=== PATIENT | male | born 1925 | race Hispanic/Latino ===

== ENCOUNTER 2016-07-01 13:49 | Inpatient (IN) | payer MEDICARE ==
--- NOTE | 2016-07-01 14:52 | Cat Scan Report ---
CT HEAD WITHOUT CONTRAST INDICATION: Altered mental status. COMPARISON: None similar. FINDINGS: Noncontrast head CT demonstrates approximately 6 x 1.8 cm left paramidline hypodensity along the superior frontal gyrus, axial image 48, series 2, amongst others, suspicious for acute/recent infarction. No acute hemorrhage, midline shift or significant mass effect however. Age-appropriate, fairly symmetric, mildly enlarged ventricles and sulci. Extensive periventricular and white matter hypodense small vessel ischemic disease and/or few lacunar infarcts. No abnormal extra axial fluid collections. Approximately 5 x 2.2 cm old right posterior temporal-occipital infarct/encephalomalacia with ex-vacuo dilatation of the right occipital horn. Normal posterior fossa with preserved basilar cisterns. Unremarkable eye globes. Bilateral frontoethmoid sinusitis. Clear remainder imaged paranasal sinuses and mastoid air cells. Left more than right external auditory canal debris may be directly visualized. Atherosclerotic internal carotid and vertebral artery calcifications. Intact calvarium. Normal scalp. CONCLUSION: 1. Left HAYDEE territory acute/subacute nonhemorrhagic infarction suspected, as detailed above. 2. Various other findings, including age-appropriate atrophy, microvascular changes and old right occipital infarct, amongst others, as described. MRI would help further characterize, if warranted. Thank you for the opportunity to participate in this patient's care.
[2016-07-01] MEDS ORDERED: ASPIRIN PR ONE (15:25)
--- NOTE | 2016-07-01 15:31 | Emergency Department Report ---
HPI - General Chief Complaint: Altered Mental Status Time Seen by Provider: 07/01/16 15:18 - HPI HPI: The patient is a 89-year-old male who presents for evaluation of strokelike symptoms. The patient arrives with family members who provide history present illness. They report that the patient was found with constant severe decrease in speech approximately 1 hour prior to arrival, at 1:30 PM earlier today. They state that they found the patient lying in bed staring at the roof, with decreased alertness. They state that the patient was last witnessed normal at 9: 51 PM last night, approximately 15 hours prior to arrival. They submit that the patient has normal speech and ability to communicate at baseline. ED Past Medical Hx - Past Medical History Hx Hypertension: Yes Hx CVA: Yes Hx Renal Disease: Yes Hx Arthritis: Yes Hx Seizures: No Hx Dementia: No Additional medical history: atrial fibrillation, bladder mass - Surgical History Additional Surgical History: unknown surgical history. - Social History Smoking Status: Current Every Day Smoker - Medications Home Medications: Home Medications Medication Instructions Recorded Confirmed Last Taken Type No Known Home Medications [No 07/01/16 07/01/16 Unknown History Reported Home Medications] ED Review of Systems ROS: Stated complaint: AMS Other details as noted in HPI Comment: Unobtainable due to pts medical conditions (non-communicative) Physical Exam - Physical Exam Vital Signs: Vital Signs 07/01/16 15:04 Respiratory 16 Rate Blood Pressure 158/67 [Left] O2 Sat by Pulse 96 Oximetry Physical Exam: General: well-nourished, well-developed, no acute distress Head: Normocephalic, atraumatic Eyes: normal sclera, EOMI, PERRL ENT: Mucous membranes are pink and moist Neck: trachea midline, neck supple, No neck stiffness, no cervical adenopathy Respiratory: Breath sounds equal bilaterally, no wheezing, rales, or rhonchi Cardio: S1 and S2 present, no murmurs, rubs, gallops, capillary refill is brisk Abdomen: Normoactive bowel sounds, soft abdomen, no rigidity, no guarding or rebound tenderness Musc: No pitting edema Skin: No rash Neuro: Patient alert, left-sided gaze deviation no facial drooping, severe expressive aphasia, unable to follow commands, no obvious gross motor deficit in the extremities, reflexes 2+ symmetric on DTR testing, Babinski downgoing Psych: Normal affect ED Course Vital Signs 07/01/16 15:04 Respiratory 16 Rate Blood Pressure 158/67 [Left] O2 Sat by Pulse 96 Oximetry ED Medical Decision Making - Lab Data Result diagrams: 07/01/16 14:53 07/01/16 14:53 - Medical Decision Making The patient was seen and examined by myself. The patient is placed on a site monitor and continuous pulse ox. On initial evaluation, the patient was found to be in no distress. Evaluation orders were placed. As the patient was last known normal 15 hours ago, he is not a candidate for TPA. CT scan the head reveals acute ischemic stroke in distribution of left HAYDEE. The patient is administered aspirin for treatment of stroke. Lab results revealed mild hypokalemia, potassium 5.6, and otherwise lab results are grossly unremarkable. The on-call hospitalist service was contacted. They agreed to admit the patient for further treatment and close monitoring. The ED admit order was placed. The patient was admitted in guarded condition. Critical care attestation.: If time is entered above; I have spent that time in minutes in the direct care of this critically ill patient, excluding procedure time. ED Disposition Clinical Impression: CVA (cerebral vascular accident), Altered mental status, Acute hyperkalemia Disposition: DISCHARGED TO HOME OR SELFCARE Is pt being admited?: Yes Does the pt Need Aspirin: Yes Condition: Serious Referrals: PRIMARY CARE, [Primary Care Provider] - 3-5 Days Time of Disposition: 15:29
[2016-07-01] MEDS ORDERED: NACL ONE ×2 (15:37→15:43)
--- NOTE | 2016-07-01 15:39 | Admit Criteria Form ---
Admission Criteria Documentation: STROKE: ISCHEMIC Clinical Indications for Admission to Inpatient Care (Place 'X' for any and all applicable criteria): Admission is indicated for ANY ONE of the following(1)(2)(3)(4): [X ]I. Acute stroke Extended stay beyond goal length of stay may be needed for(1)(2) [ ]a) Major deficit or clinical deterioration [ ]b) Hospital-acquired infection (eg, urinary tract infection, pneumonia) [ ]c) Embolic cause of stroke [ ]d) Venous thromboembolism(9) [ ]e) Seizures [ ]f) Bleeding (eg, cerebral) [ ]g) Increased intracranial pressure [ ]h) Comorbidities [ ]i) Surgical intervention The original [facility] content created by [employer] has been revised. The portions of the content which have been revised are identified through the use of italic text or in bold, and [facility] has neither reviewed nor approved the modified material. All other unmodified content is copyright [facility]. Please see references footnoted in the original [facility] edition 2016 Admission Criteria Met: Yes
[2016-07-01 15:41] LABS: Alanine Aminotransferase 13 units/L (7-56); Albumin 3.9 g/dL (3.9-5); Albumin/Globulin Ratio 1.3 %; Alkaline Phosphatase 106 units/L (35-129); Anion Gap 20 mmol/L; Bilirubin,Total 0.6 mg/dL (0.1-1.2); Blood Urea Nitrogen 18 mg/dL (9-20); Carbon Dioxide 24 mmol/L (22-30); Chloride 104.6 mmol/L (98-107); Glucose 99 mg/dL (75-100); Magnesium 2.1 mg/dL (1.7-2.3); Sodium 143 mmol/L (137-145)
[2016-07-01 15:47] LABS: Calcium 9.3 mg/dL (8.4-10.2); Hematocrit 45.6 % (35.5-45.6); Hemoglobin 14.9 gm/dl (11.8-15.2); Mean Corpuscular HGB Conc 33 % (32-34); Mean Corpuscular Hemoglobin 31 pg (28-32); Mean Corpuscular Volume 95 fl (84-94); Potassium 5.6 mmol/L (3.6-5.0); Red Blood Count 4.82 M/mm3 (3.65-5.03); Red Cell Distribution Width 13.6 % (13.2-15.2)
[2016-07-01 15:55] LABS: Platelet Count 105 K/mm3 (140-440); White Blood Count 10.5 K/mm3 (4.5-11.0)
--- NOTE | 2016-07-01 16:02 | XRay Report ---
PORTABLE CHEST INDICATION: Altered mental status, hypertension. COMPARISON: None similar. FINDINGS: Portable, frontal chest radiograph demonstrates limited inspiration with mild exaggerated cardiomediastinal silhouette and somewhat crowded lung markings. No large pleural effusions or CHF. Mild aortic knob calcifications. Multiple surgical clips in the left lower neck. EKG leads. Demineralized bones. CONCLUSION: No significant acute chest process, as described. Thank you for the opportunity to participate in this patient's care.
[2016-07-01 16:20] LABS: INR 0.99 (0.87-1.13)
[2016-07-01 16:21] LABS: Partial Thromboplastin Time 23.7 Sec. (24.2-36.6)
[2016-07-01 17:12] LABS: Basophils % (Manual) 0 % (0.0-1.8); Blastocytes % (Manual) 0 %
[2016-07-01 17:13] LABS: Elliptocytes 1+
[2016-07-01 17:14] LABS: Diff Status Complete; Platelet Estimate Consistent w Auto; Poikilocytosis Few
--- NOTE | 2016-07-01 18:01 | Cat Scan Report ---
FINAL REPORT EXAM: CT ANGIO HEAD HISTORY: stroke TECHNIQUE: Contrast-enhanced spiral CTA of brain. Multiplanar reformations. 100 mL Omnipaque IV. PRIORS: CT brain of same date. FINDINGS: Normal enhancement of the basilar and bilateral internal carotid arteries and their main intracranial branches. Mild, calcific atherosclerotic change in the bilateral cavernous and supraclinoid ICAs. No abnormal aneurysmal dilatation or significant stenosis. Lobular, geographic focus of decreased attenuation again noted in the left paramedian frontoparietal region, with paucity of vessels suggesting acute or subacute infarct. Geographic focus of encephalomalacia again noted in the right temporal occipital region compatible with more remote ischemic change or infarct. Patchy low density in the periventricular and subcortical white matter is nonspecific, but may relate to chronic small vessel ischemic change. Probable old lacunar infarct changes in the bilateral basal ganglia. Diffuse volume loss. No apparent parenchymal mass, hemorrhage, midline shift or hydrocephalus. No abnormal extra-axial fluid or air collections. No pathologic enhancement. Osseous calvarium grossly intact. IMPRESSION: 1. Findings suggesting acute or subacute ischemic change or infarct in the left paramedian frontoparietal region similar to comparison. Clinical correlation and followup suggested. 2. Chronic ischemic and atrophic changes. 3. No other acute intracranial findings.
--- NOTE | 2016-07-01 18:11 | Cat Scan Report ---
FINAL REPORT EXAM: CT ANGIO NECK HISTORY: stroke TECHNIQUE: Spiral CTA of the neck after the uneventful administration of IV contrast. Multiplanar reformations. 100 mL Omnipaque IV. PRIORS: None. FINDINGS: Postsurgical changes in left carotid region of probable carotid endarterectomy appears widely patent. Normal enhancement of the bilateral CCAs, ICAs and ECAs. Calcific, atherosclerotic change in the bilateral distal CCAs, carotid bulbs and right proximal ICA. Mild, calcific atherosclerotic change in the aortic arch and bilateral proximal subclavian arteries. No abnormal aneurysmal dilatation, apparent dissection, significant stenosis or occlusion. Vertebral arteries are patent and symmetric. Subcentimeter hypodensities in bilateral thyroid lobes. Very mild emphysematous change in the bilateral upper lungs. Small noncalcified, nodular density in left upper lobe measuring approximately 3 mm, nonspecific. Diffuse degenerative change in the cervical spine. IMPRESSION: 1. No acute findings or significant stenosis. 2. Postsurgical and mild atherosclerotic change as reported. 3. Small, nodular density in left upper lobe, indeterminate. If the patient is low risk (no significant smoking history, no history of malignancy, and a normal immune system), nodules less than 4mm in size need no follow-up. If the patient is high risk, follow-up in 12 months recommended with noncontrast CT chest. If there is no change at that time, no additional follow-up is necessary. (Based on Fleischner criteria).
[2016-07-01 18:24] LABS: Urine Drugs of Abuse Note Disclamer
[2016-07-01 19:15] LABS: Bacteria,Urine 3+ /HPF (Negative); Bilirubin,Urine NEG (Negative); Blood,Urine LG (Negative); Ketones,Urine NEG (Negative); Leukocyte Esterase,Urine MOD (Negative); Nitrite,Urine NEG (Negative)
[2016-07-01 19:16] LABS: RBC,Urine > 182.0 /HPF (0.0-6.0)
[2016-07-01] MEDS ORDERED: TYLENOL PO PRN (20:35)
[2016-07-01] MEDS ORDERED: ZOFRAN IV PRN (20:35)
[2016-07-01] MEDS ORDERED: MILK OF MAGNESIA PO PRN (20:35)
[2016-07-01] MEDS ORDERED: DILAUDID IV PRN (20:35)
[2016-07-01] MEDS ORDERED: PERCOCET 5/325 PO PRN (20:35)
[2016-07-01] MEDS ORDERED: DULCOLAX PR PRN (20:35)
--- NOTE | 2016-07-01 20:35 | History and Physical Report ---
History of Present Illness Date of examination: 07/01/16 Date of admission: 07/01/16 Chief complaint: CC Unable to talk. and possible stroke History of present illness: UPPER SKAGIT:89 year old AAM presents with Inability to talk 1 hr prior to admission.Also severe weakness in botjh lower extremities.Normallly able to walk.Symptoms happened aroun 130 pm.Patient staring at the roof with decreased alertness.Patient apparently at base line last night talking and walking.No fever or chills Past History Past Medical History: atrial fib, hypertension, renal failure, seizures, stroke (in past), other (Bladder mass) Past Surgical History: No surgical history Social history: lives with family, smoking. denies: alcohol abuse, prescription drug abuse Family history: hypertension Medications and Allergies Allergies Allergy/AdvReac Type Severity Reaction Status Date / Time No Known Allergies Allergy Unverified 01/19/13 15:46 Home Medications Medication Instructions Recorded Confirmed Last Taken Type No Known Home Medications [No 07/01/16 07/01/16 Unknown History Reported Home Medications] Review of Systems All systems: negative Constitutional: no weight loss, no weight gain, no fever, no chills Ears, nose, mouth and throat: other (Aphasia), no ear pain, no ear discharge, no tinnitis, no decreased hearing, no nasal congestion, no nasal discharge, no odynophagia Cardiovascular: no chest pain, no orthopnea, no palpitations, no shortness of breath Respiratory: no cough, no cough with sputum, no excessive sputum, no hemoptysis , no shortness of breath Gastrointestinal: no nausea, no vomiting, no diarrhea, no constipation, no change in bowel habits Genitourinary Male: no dysuria, no hematuria, no flank pain, no discharge, no urinary frequency, no urinary hesitancy, no incontinence Musculoskeletal: no neck stiffness, no neck pain Integumentary: no rash, no pruritis, no redness Neurological: weakness, aphasia, change in speech, change in mentation Psychiatric: no anxiety, no memory loss, no depression Endocrine: cold intolerance, heat intolerance, polyphagia, excessive thirst Hematologic/Lymphatic: no easy bruising, no easy bleeding Allergic/Immunologic: no urticaria, no allergic rhinitis, no wheezing Exam - Constitutional Vitals: Temp Pulse Resp BP Pulse Ox 58 L 16 157/74 99 07/01/16 18:31 07/01/16 18:31 07/01/16 18:31 07/01/16 18:31 General appearance: Present: no acute distress, well-nourished - EENT Eyes: Present: PERRL ENT: hearing intact, clear oral mucosa - Neck Neck: Present: supple, normal ROM - Respiratory Respiratory effort: normal Respiratory: bilateral: CTA - Cardiovascular Heart Sounds: Present: S1 & S2. Absent: rub, click - Extremities Extremities: pulses symmetrical, No edema Peripheral Pulses: within normal limits - Abdominal General gastrointestinal: Present: soft, non-tender, non-distended, normal bowel sounds Male genitourinary: Present: normal - Integumentary Integumentary: Present: clear, warm, dry - Musculoskeletal Musculoskeletal: gait normal, strength equal bilaterally - Psychiatric Psychiatric: appropriate mood/affect, intact judgment & insight - Neurologic Neurologic: CNII-XII intact, focal deficits (Unable to move L side ) Results - Labs CBC & Chem 7: 07/02/16 06:10 07/02/16 06:10 Labs: Laboratory Last Values WBC 10.5 K/mm3 (4.5-11.0) 07/01/16 14:53 RBC 4.82 M/mm3 (3.65-5.03) 07/01/16 14:53 Hgb 14.9 gm/dl (11.8-15.2) 07/01/16 14:53 Hct 45.6 % (35.5-45.6) 07/01/16 14:53 MCV 95 fl (84-94) H 07/01/16 14:53 MCH 31 pg (28-32) 07/01/16 14:53 MCHC 33 % (32-34) 07/01/16 14:53 RDW 13.6 % (13.2-15.2) 07/01/16 14:53 Plt Count 105 K/mm3 (140-440) L 07/01/16 14:53 Add Manual Diff Complete 07/01/16 14:53 Total Counted 100 07/01/16 14:53 Seg Neuts % (Manual) 73.0 % (40.0-70.0) H 07/01/16 14:53 Band Neutrophils % 2.0 % 07/01/16 14:53 Lymphocytes % (Manual) 21.0 % (13.4-35.0) 07/01/16 14:53 Reactive Lymphs % (Man) 0 % 07/01/16 14:53 Monocytes % (Manual) 3.0 % (0.0-7.3) 07/01/16 14:53 Eosinophils % (Manual) 1.0 % (0.0-4.3) 07/01/16 14:53 Basophils % (Manual) 0 % (0.0-1.8) 07/01/16 14:53 Metamyelocytes % 0 % 07/01/16 14:53 Myelocytes % 0 % 07/01/16 14:53 Promyelocytes % 0 % 07/01/16 14:53 Blast Cells % 0 % 07/01/16 14:53 Nucleated RBC % Not Reportable 07/01/16 14:53 Seg Neutrophils # Man 7.7 K/mm3 (1.8-7.7) 07/01/16 14:53 Band Neutrophils # 0.2 K/mm3 07/01/16 14:53 Lymphocytes # (Manual) 2.2 K/mm3 (1.2-5.4) 07/01/16 14:53 Abs React Lymphs (Man) 0.0 K/mm3 07/01/16 14:53 Monocytes # (Manual) 0.3 K/mm3 (0.0-0.8) 07/01/16 14:53 Eosinophils # (Manual) 0.1 K/mm3 (0.0-0.4) 07/01/16 14:53 Basophils # (Manual) 0.0 K/mm3 (0.0-0.1) 07/01/16 14:53 Metamyelocytes # 0.0 K/mm3 07/01/16 14:53 Myelocytes # 0.0 K/mm3 07/01/16 14:53 Promyelocytes # 0.0 K/mm3 07/01/16 14:53 Blast Cells # 0.0 K/mm3 07/01/16 14:53 WBC Morphology Not Reportable 07/01/16 14:53 Hypersegmented Neuts Not Reportable 07/01/16 14:53 Hyposegmented Neuts Not Reportable 07/01/16 14:53 Hypogranular Neuts Not Reportable 07/01/16 14:53 Smudge Cells Not Reportable 07/01/16 14:53 Toxic Granulation Not Reportable 07/01/16 14:53 Toxic Vacuolation Not Reportable 07/01/16 14:53 Dohle Bodies Not Reportable 07/01/16 14:53 Pelger-Huet Anomaly Not Reportable 07/01/16 14:53 Shelbie Rods Not Reportable 07/01/16 14:53 Platelet Estimate Consistent w auto 07/01/16 14:53 Clumped Platelets Not Reportable 07/01/16 14:53 Plt Clumps, EDTA Not Reportable 07/01/16 14:53 Large Platelets Not Reportable 07/01/16 14:53 Giant Platelets Not Reportable 07/01/16 14:53 Platelet Satelliting Not Reportable 07/01/16 14:53 Plt Morphology Comment Not Reportable 07/01/16 14:53 RBC Morphology Not Reportable 07/01/16 14:53 Dimorphic RBCs Not Reportable 07/01/16 14:53 Polychromasia Not Reportable 07/01/16 14:53 Hypochromasia Not Reportable 07/01/16 14:53 Poikilocytosis Few 07/01/16 14:53 Anisocytosis Not Reportable 07/01/16 14:53 Microcytosis Not Reportable 07/01/16 14:53 Macrocytosis Not Reportable 07/01/16 14:53 Spherocytes Not Reportable 07/01/16 14:53 Pappenheimer Bodies Not Reportable 07/01/16 14:53 Sickle Cells Not Reportable 07/01/16 14:53 Target Cells Not Reportable 07/01/16 14:53 Tear Drop Cells Not Reportable 07/01/16 14:53 Ovalocytes Not Reportable 07/01/16 14:53 Helmet Cells Not Reportable 07/01/16 14:53 [place] Bodies Not Reportable 07/01/16 14:53 Burgin Rings Not Reportable 07/01/16 14:53 Alonzo Cells Not Reportable 07/01/16 14:53 Bite Cells Not Reportable 07/01/16 14:53 Crenated Cell Not Reportable 07/01/16 14:53 Elliptocytes 1+ 07/01/16 14:53 Acanthocytes (Spur) Not Reportable 07/01/16 14:53 Rouleaux Not Reportable 07/01/16 14:53 Hemoglobin C Crystals Not Reportable 07/01/16 14:53 Schistocytes Not Reportable 07/01/16 14:53 Malaria parasites Not Reportable 07/01/16 14:53 Irvin Bodies Not Reportable 07/01/16 14:53 Hem Pathologist Commnt No 07/01/16 14:53 PT 13.0 Sec. (12.2-14.9) 07/01/16 15:32 INR 0.99 (0.87-1.13) 07/01/16 15:32 APTT 23.7 Sec. (24.2-36.6) L 07/01/16 15:32 Sodium 143 mmol/L (137-145) 07/01/16 14:53 Potassium 5.6 mmol/L (3.6-5.0) H 07/01/16 14:53 Chloride 104.6 mmol/L (98-107) 07/01/16 14:53 Carbon Dioxide 24 mmol/L (22-30) 07/01/16 14:53 Anion Gap 20 mmol/L 07/01/16 14:53 BUN 18 mg/dL (9-20) 07/01/16 14:53 Creatinine 1.0 mg/dL (0.8-1.5) 07/01/16 14:53 Estimated GFR > 60 ml/min 07/01/16 14:53 BUN/Creatinine Ratio 18.00 % 07/01/16 14:53 Glucose 99 mg/dL (75-100) 07/01/16 14:53 Lactic Acid 1.4 mmol/L (0.7-2.0) 07/01/16 15:32 Calcium 9.3 mg/dL (8.4-10.2) 07/01/16 14:53 Magnesium 2.1 mg/dL (1.7-2.3) 07/01/16 14:53 Total Bilirubin 0.6 mg/dL (0.1-1.2) 07/01/16 14:53 AST 32 units/L (5-40) 07/01/16 14:53 ALT 13 units/L (7-56) 07/01/16 14:53 Alkaline Phosphatase 106 units/L (35-129) 07/01/16 14:53 Total Protein 7.0 g/dL (6.3-8.2) 07/01/16 14:53 Albumin 3.9 g/dL (3.9-5) 07/01/16 14:53 Albumin/Globulin Ratio 1.3 % 07/01/16 14:53 Lipase 48 units/L (13-60) 07/01/16 14:53 TSH 1.870 mlU/mL (0.270-4.200) 07/01/16 14:53 Free T4 0.86 ng/dL (0.76-1.46) 07/01/16 14:53 Urine Color Red (Yellow) 07/01/16 18:11 Urine Turbidity Cloudy (Clear) 07/01/16 18:11 Urine pH 6.0 (5.0-7.0) 07/01/16 18:11 Ur Specific [place] 1.019 (1.003-1.030) 07/01/16 18:11 Urine Protein 100 mg/dl mg/dL (Negative) 07/01/16 18:11 Urine Glucose (UA) Neg mg/dL (Negative) 07/01/16 18:11 Urine Ketones Neg mg/dL (Negative) 07/01/16 18:11 Urine Blood Lg (Negative) 07/01/16 18:11 Urine Nitrite Neg (Negative) 07/01/16 18:11 Urine Bilirubin Neg (Negative) 07/01/16 18:11 Urine Urobilinogen 2.0 mg/dL (<2.0) 07/01/16 18:11 Ur Leukocyte Esterase Mod (Negative) 07/01/16 18:11 Urine WBC (Auto) 74.0 /HPF (0.0-6.0) H 07/01/16 18:11 Urine RBC (Auto) > 182.0 /HPF (0.0-6.0) 07/01/16 18:11 Urine Bacteria (Auto) 3+ /HPF (Negative) 07/01/16 18:11 Salicylates < 0.3 mg/dL (2.8-20.0) L 07/01/16 14:53 Urine Opiates Screen Presumptive negative 07/01/16 18:11 Urine Methadone Screen Presumptive negative 07/01/16 18:11 Acetaminophen < 15.0 ug/mL (10.0-30.0) 07/01/16 14:53 Ur Barbiturates Screen Presumptive negative 07/01/16 18:11 Ur Phencyclidine Scrn Presumptive negative 07/01/16 18:11 Ur Amphetamines Screen Presumptive negative 07/01/16 18:11 U Benzodiazepines Scrn Presumptive negative 07/01/16 18:11 Urine Cocaine Screen Presumptive negative 07/01/16 18:11 U Marijuana (THC) Screen Presumptive negative 07/01/16 18:11 Drugs of Abuse Note Disclamer 07/01/16 18:11 Plasma/Serum Alcohol < 0.01 gm% (0-0.07) 07/01/16 14:53 Assessment and Plan Advance Directives: Yes (None) VTE prophylaxis?: Chemical Plan of care discussed with patient/family: Yes - Patient Problems (1) Altered mental status Current Visit: Yes Status: Acute Qualifiers: Altered mental status type: somnolence Coma depth: C Coma timing: C Qualified Code(s): R40.0 - Somnolence Plan to address problem: W/u for stroke (2) CVA (cerebral vascular accident) Current Visit: Yes Status: Acute Qualifiers: CVA mechanism: thrombosis Precerebral and cerebral artery: middle cerebral artery Laterality of affected vessel: left Qualified Code(s): I63.312 - Cerebral infarction due to thrombosis of left middle cerebral artery Plan to address problem: W/u for stroke (3) Acute hyperkalemia Current Visit: Yes Status: Acute Plan to address problem: Mild and should correct with Iv fluids anf if necessary Lasix (4) DVT prophylaxis Current Visit: Yes Status: Acute Plan to address problem: On Lovenox
[2016-07-01] MEDS ORDERED: SODIUM CHLORIDE FLUSH SYRINGE 10 ML IV PRN (20:39)
[2016-07-01] MEDS ORDERED: ZOCOR PO SCH (22:00)
[2016-07-02 07:29] LABS: Basophils % (Auto) 0.3 % (0.0-1.8); Eosinophils % (Auto) 0.6 % (0.0-4.3); Hematocrit 41.6 % (35.5-45.6); Hemoglobin 13.5 gm/dl (11.8-15.2); Mean Corpuscular HGB Conc 33 % (32-34); Mean Corpuscular Hemoglobin 31 pg (28-32); Mean Corpuscular Volume 94 fl (84-94); Platelet Count 110 K/mm3 (140-440); Red Blood Count 4.42 M/mm3 (3.65-5.03); Red Cell Distribution Width 13.8 % (13.2-15.2); White Blood Count 6.4 K/mm3 (4.5-11.0)
[2016-07-02 07:48] LABS: Alanine Aminotransferase 10 units/L (7-56); Albumin 3.5 g/dL (3.9-5); Albumin/Globulin Ratio 1.1 %; Alkaline Phosphatase 105 units/L (35-129); Anion Gap 18 mmol/L; BUN/Creatinine Ratio 18.88; Bilirubin,Total 0.8 mg/dL (0.1-1.2); Blood Urea Nitrogen 17 mg/dL (9-20); Calcium 9.2 mg/dL (8.4-10.2); Carbon Dioxide 25 mmol/L (22-30); Cholesterol 132 mg/dL (50-199); Glucose 102 mg/dL (75-100); HDL Cholesterol 35 mg/dL (40-59); LDL Cholesterol,Direct 79 mg/dL (50-130); Potassium 4.2 mmol/L (3.6-5.0); Sodium 144 mmol/L (137-145); Total Protein 6.8 g/dL (6.3-8.2); Triglycerides 91 mg/dL (2-149)
--- NOTE | 2016-07-02 10:54 | Consultation ---
History of Present Illness Consult date: 07/02/16 Requesting physician: FABRICIO SONG Reason for Consult: stroke Chief complaint: AMs limits direct hx History of present illness: 89-year-old male arrived 07/01 w/ family members who provided history present illness. They report that the patient was found with constant severe decrease in speech approximately 1 hour prior to arrival at 1:30 PM. They stated that they found the patient lying in bed staring at the roof, with decreased alertness. Last well 06/30 @ 9:51 PM. They submit that the patient has normal speech and ability to communicate at baseline. Sx are constant. There are no clear aggravating, relieving or temporal factors. Severity was enough to cause inability to effectively use the right side. Past History Past Medical History: other (Ams limits direct hx) Past Surgical History: Other (Ams limits direct hx) Social history: other (Ams limits direct hx) Family history: other (Ams limits direct hx) Medications and Allergies Allergies Allergy/AdvReac Type Severity Reaction Status Date / Time No Known Allergies Allergy Unverified 01/19/13 15:46 Home Medications Medication Instructions Recorded Confirmed Last Taken Type No Known Home Medications [No 07/01/16 07/01/16 Unknown History Reported Home Medications] Active Meds: Active Medications Acetaminophen (Tylenol) 650 mg PO Q4H PRN PRN Reason: Pain MILD(1-3)/Fever >100.5/LALA Bisacodyl (Dulcolax) 10 mg LA QDAY PRN PRN Reason: Constipation unrelieved by MOM Enoxaparin Sodium (Lovenox) 40 mg SUB-Q QDAY [facility] Hydromorphone HCl (Dilaudid) 0.5 mg IV Q3H PRN PRN Reason: Pain , Severe (7-10) Dextrose/Sodium Chloride (D5/0.45ns) 1,000 mls @ 100 mls/hr IV DIRECT WAQAS Influenza Virus Vaccine Quadrival (Fluarix Quad [id number](36 Mos+)) 60 mcg IM .ONCE ONE Stop: 07/02/16 12:01 Magnesium Hydroxide (Milk Of Magnesia) 30 ml PO Q4H PRN PRN Reason: Constipation Ondansetron HCl (Zofran) 4 mg IV Q8H PRN PRN Reason: N/V unrelieved by Reglan Oxycodone/Acetaminophen (Percocet 5/325) 1 tab PO Q6H PRN PRN Reason: Pain, Moderate (4-6) Pneumococcal Polyvalent Vaccine (Pneumovax 23) 0.5 ml IM .ONCE ONE Stop: 07/02/16 12:01 Simvastatin (Zocor) 20 mg PO QHS WAQAS Last Admin: 07/02/16 07:41 Dose: Not Given Sodium Chloride (Sodium Chloride Flush Syringe 10 Ml) 10 ml IV PRN PRN PRN Reason: LINE FLUSH Review of Systems ROS unobtainable: due to mental status Physical Examination - Vital Signs Vital Signs: Vital Signs Resp BP Pulse Ox 16 158/67 96 07/01/16 15:04 07/01/16 15:04 07/01/16 15:04 - Constitutional General appearance: comfortable, chronically ill - EENT EENT: Present: ATNC, PERRL, mucous membranes dry, hearing intact, vision intact - Respiratory Respiratory: Present: chest non-tender, no respiratory distress, decreased breath sounds - Cardiovascular Cardiovascular: Present: regular rate Extremities: Present: no peripheral edema bilatateraly, no clubbing, cyanosis, no inflammation, no ischemia or petechiae - Gastrointestinal Gastrointestinal: Present: normoactive bowel sounds, soft, non-distended - Integumentary Integumentary: Present: normal - Neurologic Cranial nerve examination: PERRL, EOMI, VFF, V1/V2/V3 grossly intact, intact, intact shoulder shrug, intact cough reflex, Intact Vestibulo-ocular r, intact corneal reflex, facial droop (on R) Speech examination: motor aphasia, sensory aphasia Sensorimotor examination: pronator drift, hemiparesis (on R) Motor examination - right side: 2/5: biceps, triceps, wrist flexion, wrist extension, labor economics professor, hip flexors, knee extensors, dorsiflexion, toe extension (EHL) , plantarflexion Motor examination - left side: 5/5: biceps, triceps, wrist flexion, wrist extension, labor economics professor, hip flexors, knee extensors, dorsiflexion, toe extension (EHL) , plantarflexion Detailed sensory examination: intact, pain Reflexes: 3+: ankle (on R), bicep, knee, tricep - Musculoskeletal Musculoskeletal: Present: no fluid collection, no pain, normal range of motion - Psychiatric Psychiatric: Present: mood/affect appropriate, cooperative Results - Laboratory Findings CBC and BMP: 07/02/16 06:10 07/02/16 06:10 Abnormal Lab Findings: Abnormal Labs 07/02/16 07/02/16 06:10 06:10 Plt Count 110 L Glucose 102 H Albumin 3.5 L HDL Cholesterol 35 L Assessment and Plan 89 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 LDL 79. CTA Head/Neck post surgical L ICA suspect prior CEA. CDs neg. Stroke severity relatively high-I suspect pt will require PEG if family consents. Plan and Recommendation: 1. No indication for pharmacologic thrombolysis with IV tPA or mechanical thrombectomy due to last known normal > 6 hrs from presentation. Current NIHSS 14. 2. Telemetry bed w/ Q4 hour neuro checks 3. Brain imaging: MRI Brain w/o Adriano Stroke Protocol 4. TTE to eval for possible cardiac source of embolism 5. 30 day ambulatory Tele monitor ? pAFib 6. Autoregulate SBP to goal 120-160 as pt is outside permissive HTN window. 7. Secondary stroke prevention: ASA 325mg/300mg LA Daily & upgrade to full dose statin therapy (Crestor 20mg or 40mg OR Lipitor 40mg or 80mg Daily OR Zocor 40mg QDay) for goal LDL < 70. No firm indication at this point for therapeutic anticoagulation as pt has not had AFib captured on telemetry monitoring. 8. F/E/N: isotonic IVF prn, prn replete, bedside speech/swallow eval prior to PO intake. 9. DVT Prophylaxis 10. Stroke education, PT/OT/Speech Therapy consults, CM evaluation 11. For any changes in neurologic status, pls obtain STAT CTH w/o contrast and call neurology
[2016-07-02] MEDS: LOVENOX SUB-Q SCH (11:23)
[2016-07-02] MEDS ORDERED: FLUARIX QUAD 2016-2017(36 MOS+) IM ONE (12:00)
[2016-07-02] MEDS ORDERED: PNEUMOVAX 23 IM ONE (12:00)
--- NOTE | 2016-07-02 16:07 | Progress Note ---
Assessment and Plan Assessment and plan: Acute CVA - Neurology recommendation appreciated - Patient is on aspirin, statin - Permissive hypertension - PT/OT/ evaluation - Stroke education - We will finish the workup including TTE - Patient did have A. fib on the monitor, may need event monitor as an outpatient - No indication for pharmacologic prophylaxis History Interval history: Patient was sleeping, his ex- and son were present at the time of examination. Patient is not able to speak but able to understood. Hospitalist Physical - Physical exam Narrative exam: Not in cardiopulmonary distress. Chronically sick looking Vital signs as documented. Head exam is unremarkable. No scleral icterus . Neck is without jugular venous distension, thyromegaly, or carotid bruits. Lungs are clear to auscultation. Cardiac exam reveals regular rate and Rhythm.. Abdominal exam reveals normal bowel sounds, no masses, no organomegaly and no aortic enlargement. Extremities are nonedematous. SUPERVISOR CURING ROOM: Nonverbal per families report. - Constitutional Vitals: Temp Pulse Resp BP Pulse Ox 97.5 F L 71 20 160/75 100 07/02/16 08:01 07/02/16 10:41 07/02/16 08:01 07/02/16 08:01 07/02/16 10:42 General appearance: Present: no acute distress, well-nourished Results - Labs CBC & Chem 7: 07/02/16 06:10 07/02/16 06:10 Labs: Laboratory Last Values WBC 6.4 K/mm3 (4.5-11.0) 07/02/16 06:10 RBC 4.42 M/mm3 (3.65-5.03) 07/02/16 06:10 Hgb 13.5 gm/dl (11.8-15.2) 07/02/16 06:10 Hct 41.6 % (35.5-45.6) 07/02/16 06:10 MCV 94 fl (84-94) 07/02/16 06:10 MCH 31 pg (28-32) 07/02/16 06:10 MCHC 33 % (32-34) 07/02/16 06:10 RDW 13.8 % (13.2-15.2) 07/02/16 06:10 Plt Count 110 K/mm3 (140-440) L 07/02/16 06:10 Lymph % (Auto) 24.5 % (13.4-35.0) 07/02/16 06:10 Stone % (Auto) 5.7 % (0.0-7.3) 07/02/16 06:10 Eos % (Auto) 0.6 % (0.0-4.3) 07/02/16 06:10 Baso % (Auto) 0.3 % (0.0-1.8) 07/02/16 06:10 Lymph # 1.6 K/mm3 (1.2-5.4) 07/02/16 06:10 Stone # 0.4 K/mm3 (0.0-0.8) 07/02/16 06:10 Eos # 0.0 K/mm3 (0.0-0.4) 07/02/16 06:10 Baso # 0.0 K/mm3 (0.0-0.1) 07/02/16 06:10 Add Manual Diff Complete 07/01/16 14:53 Total Counted 100 07/01/16 14:53 Seg Neutrophils % 68.9 % (40.0-70.0) 07/02/16 06:10 Seg Neuts % (Manual) 73.0 % (40.0-70.0) H 07/01/16 14:53 Band Neutrophils % 2.0 % 07/01/16 14:53 Lymphocytes % (Manual) 21.0 % (13.4-35.0) 07/01/16 14:53 Reactive Lymphs % (Man) 0 % 07/01/16 14:53 Monocytes % (Manual) 3.0 % (0.0-7.3) 07/01/16 14:53 Eosinophils % (Manual) 1.0 % (0.0-4.3) 07/01/16 14:53 Basophils % (Manual) 0 % (0.0-1.8) 07/01/16 14:53 Metamyelocytes % 0 % 07/01/16 14:53 Myelocytes % 0 % 07/01/16 14:53 Promyelocytes % 0 % 07/01/16 14:53 Blast Cells % 0 % 07/01/16 14:53 Nucleated RBC % Not Reportable 07/01/16 14:53 Seg Neutrophils # 4.4 K/mm3 (1.8-7.7) 07/02/16 06:10 Seg Neutrophils # Man 7.7 K/mm3 (1.8-7.7) 07/01/16 14:53 Band Neutrophils # 0.2 K/mm3 07/01/16 14:53 Lymphocytes # (Manual) 2.2 K/mm3 (1.2-5.4) 07/01/16 14:53 Abs React Lymphs (Man) 0.0 K/mm3 07/01/16 14:53 Monocytes # (Manual) 0.3 K/mm3 (0.0-0.8) 07/01/16 14:53 Eosinophils # (Manual) 0.1 K/mm3 (0.0-0.4) 07/01/16 14:53 Basophils # (Manual) 0.0 K/mm3 (0.0-0.1) 07/01/16 14:53 Metamyelocytes # 0.0 K/mm3 07/01/16 14:53 Myelocytes # 0.0 K/mm3 07/01/16 14:53 Promyelocytes # 0.0 K/mm3 07/01/16 14:53 Blast Cells # 0.0 K/mm3 07/01/16 14:53 WBC Morphology Not Reportable 07/01/16 14:53 Hypersegmented Neuts Not Reportable 07/01/16 14:53 Hyposegmented Neuts Not Reportable 07/01/16 14:53 Hypogranular Neuts Not Reportable 07/01/16 14:53 Smudge Cells Not Reportable 07/01/16 14:53 Toxic Granulation Not Reportable 07/01/16 14:53 Toxic Vacuolation Not Reportable 07/01/16 14:53 Dohle Bodies Not Reportable 07/01/16 14:53 Pelger-Huet Anomaly Not Reportable 07/01/16 14:53 Shelbie Rods Not Reportable 07/01/16 14:53 Platelet Estimate Consistent w auto 07/01/16 14:53 Clumped Platelets Not Reportable 07/01/16 14:53 Plt Clumps, EDTA Not Reportable 07/01/16 14:53 Large Platelets Not Reportable 07/01/16 14:53 Giant Platelets Not Reportable 07/01/16 14:53 Platelet Satelliting Not Reportable 07/01/16 14:53 Plt Morphology Comment Not Reportable 07/01/16 14:53 RBC Morphology Not Reportable 07/01/16 14:53 Dimorphic RBCs Not Reportable 07/01/16 14:53 Polychromasia Not Reportable 07/01/16 14:53 Hypochromasia Not Reportable 07/01/16 14:53 Poikilocytosis Few 07/01/16 14:53 Anisocytosis Not Reportable 07/01/16 14:53 Microcytosis Not Reportable 07/01/16 14:53 Macrocytosis Not Reportable 07/01/16 14:53 Spherocytes Not Reportable 07/01/16 14:53 Pappenheimer Bodies Not Reportable 07/01/16 14:53 Sickle Cells Not Reportable 07/01/16 14:53 Target Cells Not Reportable 07/01/16 14:53 Tear Drop Cells Not Reportable 07/01/16 14:53 Ovalocytes Not Reportable 07/01/16 14:53 Helmet Cells Not Reportable 07/01/16 14:53 [place] Bodies Not Reportable 07/01/16 14:53 [place] Rings Not Reportable 07/01/16 14:53 [place] Cells Not Reportable 07/01/16 14:53 Bite Cells Not Reportable 07/01/16 14:53 Crenated Cell Not Reportable 07/01/16 14:53 Elliptocytes 1+ 07/01/16 14:53 Acanthocytes (Spur) Not Reportable 07/01/16 14:53 Rouleaux Not Reportable 07/01/16 14:53 Hemoglobin C Crystals Not Reportable 07/01/16 14:53 Schistocytes Not Reportable 07/01/16 14:53 Malaria parasites Not Reportable 07/01/16 14:53 Irvin Bodies Not Reportable 07/01/16 14:53 Hem Pathologist Commnt No 07/01/16 14:53 PT 13.0 Sec. (12.2-14.9) 07/01/16 15:32 INR 0.99 (0.87-1.13) 07/01/16 15:32 APTT 23.7 Sec. (24.2-36.6) L 07/01/16 15:32 Sodium 144 mmol/L (137-145) 07/02/16 06:10 Potassium 4.2 mmol/L (3.6-5.0) D 07/02/16 06:10 Chloride 105.0 mmol/L (98-107) 07/02/16 06:10 Carbon Dioxide 25 mmol/L (22-30) 07/02/16 06:10 Anion Gap 18 mmol/L 07/02/16 06:10 BUN 17 mg/dL (9-20) 07/02/16 06:10 Creatinine 0.9 mg/dL (0.8-1.5) 07/02/16 06:10 Estimated GFR > 60 ml/min 07/02/16 06:10 BUN/Creatinine Ratio 18.88 % 07/02/16 06:10 Glucose 102 mg/dL (75-100) H 07/02/16 06:10 Lactic Acid 1.4 mmol/L (0.7-2.0) 07/01/16 15:32 Calcium 9.2 mg/dL (8.4-10.2) 07/02/16 06:10 Magnesium 2.1 mg/dL (1.7-2.3) 07/01/16 14:53 Total Bilirubin 0.8 mg/dL (0.1-1.2) 07/02/16 06:10 AST 18 units/L (5-40) 07/02/16 06:10 ALT 10 units/L (7-56) 07/02/16 06:10 Alkaline Phosphatase 105 units/L (35-129) 07/02/16 06:10 Total Protein 6.8 g/dL (6.3-8.2) 07/02/16 06:10 Albumin 3.5 g/dL (3.9-5) L 07/02/16 06:10 Albumin/Globulin Ratio 1.1 % 07/02/16 06:10 Triglycerides 91 mg/dL (2-149) 07/02/16 06:10 Cholesterol 132 mg/dL (50-199) 07/02/16 06:10 LDL Cholesterol Direct 79 mg/dL (50-130) 07/02/16 06:10 HDL Cholesterol 35 mg/dL (40-59) L 07/02/16 06:10 Cholesterol/HDL Ratio 3.77 % 07/02/16 06:10 Lipase 48 units/L (13-60) 07/01/16 14:53 TSH 1.870 mlU/mL (0.270-4.200) 07/01/16 14:53 Free T4 0.86 ng/dL (0.76-1.46) 07/01/16 14:53 Urine Color Red (Yellow) 07/01/16 18:11 Urine Turbidity Cloudy (Clear) 07/01/16 18:11 Urine pH 6.0 (5.0-7.0) 07/01/16 18:11 Ur Specific [place] 1.019 (1.003-1.030) 07/01/16 18:11 Urine Protein 100 mg/dl mg/dL (Negative) 07/01/16 18:11 Urine Glucose (UA) Neg mg/dL (Negative) 07/01/16 18:11 Urine Ketones Neg mg/dL (Negative) 07/01/16 18:11 Urine Blood Lg (Negative) 07/01/16 18:11 Urine Nitrite Neg (Negative) 07/01/16 18:11 Urine Bilirubin Neg (Negative) 07/01/16 18:11 Urine Urobilinogen 2.0 mg/dL (<2.0) 07/01/16 18:11 Ur Leukocyte Esterase Mod (Negative) 07/01/16 18:11 Urine WBC (Auto) 74.0 /HPF (0.0-6.0) H 07/01/16 18:11 Urine RBC (Auto) > 182.0 /HPF (0.0-6.0) 07/01/16 18:11 Urine Bacteria (Auto) 3+ /HPF (Negative) 07/01/16 18:11 Salicylates < 0.3 mg/dL (2.8-20.0) L 07/01/16 14:53 Urine Opiates Screen Presumptive negative 07/01/16 18:11 Urine Methadone Screen Presumptive negative 07/01/16 18:11 Acetaminophen < 15.0 ug/mL (10.0-30.0) 07/01/16 14:53 Ur Barbiturates Screen Presumptive negative 07/01/16 18:11 Ur Phencyclidine Scrn Presumptive negative 07/01/16 18:11 Ur Amphetamines Screen Presumptive negative 07/01/16 18:11 U Benzodiazepines Scrn Presumptive negative 07/01/16 18:11 Urine Cocaine Screen Presumptive negative 07/01/16 18:11 U Marijuana (THC) Screen Presumptive negative 07/01/16 18:11 Drugs of Abuse Note Disclamer 07/01/16 18:11 Plasma/Serum Alcohol < 0.01 gm% (0-0.07) 07/01/16 14:53
--- NOTE | 2016-07-02 16:21 | Magnetic Resonance Report ---
MRI BRAIN WITHOUT CONTRAST INDICATION: Stroke. COMPARISON: Head CT imaging from yesterday. FINDINGS: Noncontrast multiplanar and multisequence MRI of the brain limited due to motion, though again demonstrates approximately 6.2 x 1.7 cm left paramidline restricted diffusion along the superior frontal gyrus as on diffusion series 4, images 24-32. No other acute infarct, hemorrhage, mass effect or midline shift. No hemorrhagic transformation. Minimal, benign bilateral basal ganglia calcifications. Grossly symmetric, age-appropriate, mildly enlarged ventricles and sulci with moderate periventricular and numerous white matter FLAIR and T2 weighted hyperintensities. Few small ganglionic lacunar infarcts measuring up to 5 mm on the left as well. Somewhat heterogeneous signal in the right proximal and cavernous ICA, nonspecific, noted patent on yesterday's CTA. Normal major intracranial vascular flow voids. An approximately 5 x 2.5 cm old right posterior temporal-occipital infarct/encephalomalacia with ex-vacuo dilatation of the right occipital horn again noted. Normal posterior fossa with present basilar cisterns. Normal eye globes. Mild frontoethmoid sinusitis again not excluded. Grossly clear remainder imaged paranasal sinuses and mastoid air cells. Normal midline structures without evidence of Chiari malformation. CONCLUSION: 1. Left HAYDEE territory acute/subacute nonhemorrhagic infarction stable to yesterday's CT appearance, as described above. 2. Various other findings, including age-appropriate atrophy, microvascular changes and old right occipital infarct, amongst others, as above. Thank you for the opportunity to participate in this patient's care.
--- NOTE | 2016-07-02 16:21 | Magnetic Resonance Report ---
MRA HEAD WITHOUT CONTRAST INDICATION: Stroke. COMPARISON: None similar. FINDINGS: MRA of the head performed without intravenous contrast and demonstrates no evidence of flow-limiting stenosis, occlusion or vascular malformation except for attenuation/signal loss along the left HAYDEE distally suspected above the level of the ventricles about acute infarcted region as on source series 3, images 112-121. PCOMs not seen. Please note that detection of aneurysms less than 5 mm is limited on this exam. CONCLUSION: Left HAYDEE branch occlusion distally about the left superior frontal gyrus infarct region possible, as described. Thank you for the opportunity to participate in this patient's care.
[2016-07-02] MEDS: ZOCOR PO SCH (22:17)
[2016-07-03] MEDS: D5/0.45NS 1,000 ML IV SCH (04:47)
--- NOTE | 2016-07-03 08:31 | Event Note ---
Date: 07/03/16 MRI Brain reviewed-L HAYDEE acute infarct. TTE neg. ? AFib captured on event monitor. Would recommend ASA 325mg QDay for at least 7-10 days and no AC as risk of hemorrhagic conversion high in setting of large cortical infarct. Remainder of impression/plan as dictated in prior consult note including 30 day ambulatory Tele monitor to confirm Afib. We can revisit as needed.
[2016-07-03] MEDS: LOVENOX SUB-Q SCH (10:27)
--- NOTE | 2016-07-03 10:53 | Fluoroscopy Report ---
Modified barium swallow: History: Dysphagia. Findings: There is no anatomic obstruction noted to thin liquids, semisolid and solid food through the cervical esophagus. Additional findings would be provided by speech therapist. Impression: Findings there is a
--- NOTE | 2016-07-03 14:34 | Consultation ---
History of Present Illness - Reason for Consult Consult date: 07/03/16 Evaluate for Acute IRU - History of Present Illness 89 y.o. male who was found at home by ex- with acute onset of difficulty ambulating, aphasia, and altered mental status. Pt found to have an acute left HAYDEE CVA. Pt evaluated by FILLER BLENDER; cleared for pureed diet with honey thickened liquids as bedside; pureed and nectar after MBS this afternoon. On today, pt remains aphasic; not following commands. Consult requested for post-acute placement recommendations. History is per chart review and ex- present in room due to aphasia. Past History Past Medical History: atrial fib, DVT, hypertension, renal failure, seizures, stroke, other (Bladder mass) Past Surgical History: Other (vein stripping; IVC filter placement) Social history: lives with family (ex-), smoking. denies: alcohol abuse, prescription drug abuse Family history: hypertension Medications and Allergies Allergies Allergy/AdvReac Type Severity Reaction Status Date / Time No Known Allergies Allergy Unverified 01/19/13 15:46 Home Medications Medication Instructions Recorded Confirmed Last Taken Type No Known Home Medications [No 07/01/16 07/01/16 Unknown History Reported Home Medications] Active Meds: Active Medications Acetaminophen (Tylenol) 650 mg PO Q4H PRN PRN Reason: Pain MILD(1-3)/Fever >100.5/LALA Bisacodyl (Dulcolax) 10 mg OR QDAY PRN PRN Reason: Constipation unrelieved by MOM Enoxaparin Sodium (Lovenox) 40 mg SUB-Q QDAY WAQAS Last Admin: 07/03/16 10:27 Dose: 40 mg Hydromorphone HCl (Dilaudid) 0.5 mg IV Q3H PRN PRN Reason: Pain , Severe (7-10) Dextrose/Sodium Chloride (D5/0.45ns) 1,000 mls @ 100 mls/hr IV DIRECT WAQAS Last Admin: 07/03/16 04:47 Dose: 100 mls/hr Magnesium Hydroxide (Milk Of Magnesia) 30 ml PO Q4H PRN PRN Reason: Constipation Ondansetron HCl (Zofran) 4 mg IV Q8H PRN PRN Reason: N/V unrelieved by Reglan Oxycodone/Acetaminophen (Percocet 5/325) 1 tab PO Q6H PRN PRN Reason: Pain, Moderate (4-6) Simvastatin (Zocor) 40 mg PO QHS WAQAS Last Admin: 07/02/16 22:17 Dose: 40 mg Sodium Chloride (Sodium Chloride Flush Syringe 10 Ml) 10 ml IV PRN PRN PRN Reason: LINE FLUSH Review of Systems ROS unobtainable: due to mental status (aphasia; tearful when ex- entered room) Exam - Constitutional Vitals: Vital Signs - 12hr 07/03/16 07/03/16 07/03/16 05:35 09:00 09:30 Temperature 98.9 F 97.4 F L Pulse Rate [ 67 Apical] Pulse Rate [ 64 Right Radial] Respiratory 20 20 Rate Blood Pressure 160/73 164/72 [Right Arm] O2 Sat by Pulse 93 96 96 Oximetry General appearance: other (tearful) - EENT Eyes: EOM intact ENT: hearing decreased (+hearing aid to right ear) - Neck Neck: supple - Respiratory Respiratory effort: normal Respiratory: bilateral: CTA - Cardiovascular Heart Sounds: Present: S1 & S2 - Extremities Extremities: No edema - Gastrointestinal General gastrointestinal: Present: soft, normal bowel sounds - Integumentary Integumentary: Present: clear - Musculoskeletal Musculoskeletal: other (only actively moves LUE; does not follow commands for MMT during exam) - Neurologic Neurologic: no CNII-XII intact (cannot assess), no other (cannot assess sensation) - Psychiatric Psychiatric: no memory intact (cannot assess) - Allied health notes Allied health notes reviewed: ST (completed MBS this afternoon; pureed with nectar thickened), OT (maxA for bed mobility; totalA for ADLs) - Labs CBC & Chem 7: 07/02/16 06:10 07/02/16 06:10 Labs: Laboratory Results - last 72 hr 07/02/16 07/02/16 06:10 06:10 WBC 6.4 RBC 4.42 Hgb 13.5 Hct 41.6 MCV 94 MCH 31 MCHC 33 RDW 13.8 Plt Count 110 L Lymph % (Auto) 24.5 [place] % (Auto) 5.7 Eos % (Auto) 0.6 Baso % (Auto) 0.3 Lymph # 1.6 [place] # 0.4 Eos # 0.0 Baso # 0.0 Seg Neutrophils % 68.9 Seg Neutrophils # 4.4 Sodium 144 Potassium 4.2 D Chloride 105.0 Carbon Dioxide 25 Anion Gap 18 BUN 17 Creatinine 0.9 Estimated GFR > 60 BUN/Creatinine Ratio 18.88 Glucose 102 H Calcium 9.2 Total Bilirubin 0.8 AST 18 ALT 10 Alkaline Phosphatase 105 Total Protein 6.8 Albumin 3.5 L Albumin/Globulin Ratio 1.1 Triglycerides 91 Cholesterol 132 LDL Cholesterol Direct 79 HDL Cholesterol 35 L Cholesterol/HDL Ratio 3.77 Assessment and Plan Patient was assessed and evaluated for Acute Inpatient Rehab Unit. 89 y.o. male s/p acute/subacute left HAYDEE CVA, subsequent aphasia and dysphagia. Rehab options discussed with pt's ex-. Pt will likely require SNF placement at discharge. Pt is not currently following commands and ex- will not be able to provide 24 hour care/assistance to patient. Ongoing management of HTN per primary team. Will follow for functional progress. Thank you for consultation. - Patient Problems (1) Acute left HAYDEE ischemic stroke Current Visit: Yes Status: Acute (2) Hemiparesis, aphasia, and dysphagia as late effect of cerebrovascular accident (CVA) Current Visit: Yes Status: Acute (3) HTN (hypertension) Current Visit: Yes Status: Acute Qualifiers: Hypertension type: essential hypertension Qualified Code(s): I10 - Essential (primary) hypertension
--- NOTE | 2016-07-03 14:52 | Progress Note ---
Assessment and Plan Assessment and plan: Acute CVA - Neurology recommendation appreciated - Patient is on aspirin, statin - Permissive hypertension - Speech evaluation appreciated - PT evaluation appreciated - Stroke education - We will finish the workup including TTE - Patient didn't have A. fib on the monitor, may need event monitor as an outpatient, currently doesn't need anticoagulation - Patient is evaluated by acute rehabilitation and recommended SNF Disposition - Continue inpatient care History Interval history: Patient was seen and evaluated this morning. Patient has aphasia and right- sided hemiparesis. Hospitalist Physical - Physical exam Narrative exam: Not in cardiopulmonary distress. Chronically sick looking Vital signs as documented. Head exam is unremarkable. No scleral icterus . Neck is without jugular venous distension, thyromegaly, or carotid bruits. Lungs are clear to auscultation. Cardiac exam reveals regular rate and Rhythm.. Abdominal exam reveals normal bowel sounds, no masses, no organomegaly and no aortic enlargement. Extremities are nonedematous. 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 - Constitutional Vitals: Temp Pulse Resp BP Pulse Ox 97.4 F L 64 20 164/72 96 07/03/16 09:30 07/03/16 09:30 07/03/16 09:30 07/03/16 09:30 07/03/16 09:30 General appearance: Present: other (tearful) Results - Labs CBC & Chem 7: 07/02/16 06:10 07/02/16 06:10 Labs: Laboratory Last Values WBC 6.4 K/mm3 (4.5-11.0) 07/02/16 06:10 RBC 4.42 M/mm3 (3.65-5.03) 07/02/16 06:10 Hgb 13.5 gm/dl (11.8-15.2) 07/02/16 06:10 Hct 41.6 % (35.5-45.6) 07/02/16 06:10 MCV 94 fl (84-94) 07/02/16 06:10 MCH 31 pg (28-32) 07/02/16 06:10 MCHC 33 % (32-34) 07/02/16 06:10 RDW 13.8 % (13.2-15.2) 07/02/16 06:10 Plt Count 110 K/mm3 (140-440) L 07/02/16 06:10 Lymph % (Auto) 24.5 % (13.4-35.0) 07/02/16 06:10 [place] % (Auto) 5.7 % (0.0-7.3) 07/02/16 06:10 Eos % (Auto) 0.6 % (0.0-4.3) 07/02/16 06:10 Baso % (Auto) 0.3 % (0.0-1.8) 07/02/16 06:10 Lymph # 1.6 K/mm3 (1.2-5.4) 07/02/16 06:10 [place] # 0.4 K/mm3 (0.0-0.8) 07/02/16 06:10 Eos # 0.0 K/mm3 (0.0-0.4) 07/02/16 06:10 Baso # 0.0 K/mm3 (0.0-0.1) 07/02/16 06:10 Add Manual Diff Complete 07/01/16 14:53 Total Counted 100 07/01/16 14:53 Seg Neutrophils % 68.9 % (40.0-70.0) 07/02/16 06:10 Seg Neuts % (Manual) 73.0 % (40.0-70.0) H 07/01/16 14:53 Band Neutrophils % 2.0 % 07/01/16 14:53 Lymphocytes % (Manual) 21.0 % (13.4-35.0) 07/01/16 14:53 Reactive Lymphs % (Man) 0 % 07/01/16 14:53 Monocytes % (Manual) 3.0 % (0.0-7.3) 07/01/16 14:53 Eosinophils % (Manual) 1.0 % (0.0-4.3) 07/01/16 14:53 Basophils % (Manual) 0 % (0.0-1.8) 07/01/16 14:53 Metamyelocytes % 0 % 07/01/16 14:53 Myelocytes % 0 % 07/01/16 14:53 Promyelocytes % 0 % 07/01/16 14:53 Blast Cells % 0 % 07/01/16 14:53 Nucleated RBC % Not Reportable 07/01/16 14:53 Seg Neutrophils # 4.4 K/mm3 (1.8-7.7) 07/02/16 06:10 Seg Neutrophils # Man 7.7 K/mm3 (1.8-7.7) 07/01/16 14:53 Band Neutrophils # 0.2 K/mm3 07/01/16 14:53 Lymphocytes # (Manual) 2.2 K/mm3 (1.2-5.4) 07/01/16 14:53 Abs React Lymphs (Man) 0.0 K/mm3 07/01/16 14:53 Monocytes # (Manual) 0.3 K/mm3 (0.0-0.8) 07/01/16 14:53 Eosinophils # (Manual) 0.1 K/mm3 (0.0-0.4) 07/01/16 14:53 Basophils # (Manual) 0.0 K/mm3 (0.0-0.1) 07/01/16 14:53 Metamyelocytes # 0.0 K/mm3 07/01/16 14:53 Myelocytes # 0.0 K/mm3 07/01/16 14:53 Promyelocytes # 0.0 K/mm3 07/01/16 14:53 Blast Cells # 0.0 K/mm3 07/01/16 14:53 WBC Morphology Not Reportable 07/01/16 14:53 Hypersegmented Neuts Not Reportable 07/01/16 14:53 Hyposegmented Neuts Not Reportable 07/01/16 14:53 Hypogranular Neuts Not Reportable 07/01/16 14:53 Smudge Cells Not Reportable 07/01/16 14:53 Toxic Granulation Not Reportable 07/01/16 14:53 Toxic Vacuolation Not Reportable 07/01/16 14:53 Dohle Bodies Not Reportable 07/01/16 14:53 Pelger-Huet Anomaly Not Reportable 07/01/16 14:53 Shelbie Rods Not Reportable 07/01/16 14:53 Platelet Estimate Consistent w auto 07/01/16 14:53 Clumped Platelets Not Reportable 07/01/16 14:53 Plt Clumps, EDTA Not Reportable 07/01/16 14:53 Large Platelets Not Reportable 07/01/16 14:53 Giant Platelets Not Reportable 07/01/16 14:53 Platelet Satelliting Not Reportable 07/01/16 14:53 Plt Morphology Comment Not Reportable 07/01/16 14:53 RBC Morphology Not Reportable 07/01/16 14:53 Dimorphic RBCs Not Reportable 07/01/16 14:53 Polychromasia Not Reportable 07/01/16 14:53 Hypochromasia Not Reportable 07/01/16 14:53 Poikilocytosis Few 07/01/16 14:53 Anisocytosis Not Reportable 07/01/16 14:53 Microcytosis Not Reportable 07/01/16 14:53 Macrocytosis Not Reportable 07/01/16 14:53 Spherocytes Not Reportable 07/01/16 14:53 Pappenheimer Bodies Not Reportable 07/01/16 14:53 Sickle Cells Not Reportable 07/01/16 14:53 Target Cells Not Reportable 07/01/16 14:53 Tear Drop Cells Not Reportable 07/01/16 14:53 Ovalocytes Not Reportable 07/01/16 14:53 Helmet Cells Not Reportable 07/01/16 14:53 [place] Bodies Not Reportable 07/01/16 14:53 Speer Rings Not Reportable 07/01/16 14:53 Alonzo Cells Not Reportable 07/01/16 14:53 Bite Cells Not Reportable 07/01/16 14:53 Crenated Cell Not Reportable 07/01/16 14:53 Elliptocytes 1+ 07/01/16 14:53 Acanthocytes (Spur) Not Reportable 07/01/16 14:53 Rouleaux Not Reportable 07/01/16 14:53 Hemoglobin C Crystals Not Reportable 07/01/16 14:53 Schistocytes Not Reportable 07/01/16 14:53 Malaria parasites Not Reportable 07/01/16 14:53 Irvin Bodies Not Reportable 07/01/16 14:53 Hem Pathologist Commnt No 07/01/16 14:53 PT 13.0 Sec. (12.2-14.9) 07/01/16 15:32 INR 0.99 (0.87-1.13) 07/01/16 15:32 APTT 23.7 Sec. (24.2-36.6) L 07/01/16 15:32 Sodium 144 mmol/L (137-145) 07/02/16 06:10 Potassium 4.2 mmol/L (3.6-5.0) D 07/02/16 06:10 Chloride 105.0 mmol/L (98-107) 07/02/16 06:10 Carbon Dioxide 25 mmol/L (22-30) 07/02/16 06:10 Anion Gap 18 mmol/L 07/02/16 06:10 BUN 17 mg/dL (9-20) 07/02/16 06:10 Creatinine 0.9 mg/dL (0.8-1.5) 07/02/16 06:10 Estimated GFR > 60 ml/min 07/02/16 06:10 BUN/Creatinine Ratio 18.88 % 07/02/16 06:10 Glucose 102 mg/dL (75-100) H 07/02/16 06:10 Lactic Acid 1.4 mmol/L (0.7-2.0) 07/01/16 15:32 Calcium 9.2 mg/dL (8.4-10.2) 07/02/16 06:10 Magnesium 2.1 mg/dL (1.7-2.3) 07/01/16 14:53 Total Bilirubin 0.8 mg/dL (0.1-1.2) 07/02/16 06:10 AST 18 units/L (5-40) 07/02/16 06:10 ALT 10 units/L (7-56) 07/02/16 06:10 Alkaline Phosphatase 105 units/L (35-129) 07/02/16 06:10 Total Protein 6.8 g/dL (6.3-8.2) 07/02/16 06:10 Albumin 3.5 g/dL (3.9-5) L 07/02/16 06:10 Albumin/Globulin Ratio 1.1 % 07/02/16 06:10 Triglycerides 91 mg/dL (2-149) 07/02/16 06:10 Cholesterol 132 mg/dL (50-199) 07/02/16 06:10 LDL Cholesterol Direct 79 mg/dL (50-130) 07/02/16 06:10 HDL Cholesterol 35 mg/dL (40-59) L 07/02/16 06:10 Cholesterol/HDL Ratio 3.77 % 07/02/16 06:10 Lipase 48 units/L (13-60) 07/01/16 14:53 TSH 1.870 mlU/mL (0.270-4.200) 07/01/16 14:53 Free T4 0.86 ng/dL (0.76-1.46) 07/01/16 14:53 Urine Color Red (Yellow) 07/01/16 18:11 Urine Turbidity Cloudy (Clear) 07/01/16 18:11 Urine pH 6.0 (5.0-7.0) 07/01/16 18:11 Ur Specific [place] 1.019 (1.003-1.030) 07/01/16 18:11 Urine Protein 100 mg/dl mg/dL (Negative) 07/01/16 18:11 Urine Glucose (UA) Neg mg/dL (Negative) 07/01/16 18:11 Urine Ketones Neg mg/dL (Negative) 07/01/16 18:11 Urine Blood Lg (Negative) 07/01/16 18:11 Urine Nitrite Neg (Negative) 07/01/16 18:11 Urine Bilirubin Neg (Negative) 07/01/16 18:11 Urine Urobilinogen 2.0 mg/dL (<2.0) 07/01/16 18:11 Ur Leukocyte Esterase Mod (Negative) 07/01/16 18:11 Urine WBC (Auto) 74.0 /HPF (0.0-6.0) H 07/01/16 18:11 Urine RBC (Auto) > 182.0 /HPF (0.0-6.0) 07/01/16 18:11 Urine Bacteria (Auto) 3+ /HPF (Negative) 07/01/16 18:11 Salicylates < 0.3 mg/dL (2.8-20.0) L 07/01/16 14:53 Urine Opiates Screen Presumptive negative 07/01/16 18:11 Urine Methadone Screen Presumptive negative 07/01/16 18:11 Acetaminophen < 15.0 ug/mL (10.0-30.0) 07/01/16 14:53 Ur Barbiturates Screen Presumptive negative 07/01/16 18:11 Ur Phencyclidine Scrn Presumptive negative 07/01/16 18:11 Ur Amphetamines Screen Presumptive negative 07/01/16 18:11 U Benzodiazepines Scrn Presumptive negative 07/01/16 18:11 Urine Cocaine Screen Presumptive negative 07/01/16 18:11 U Marijuana (THC) Screen Presumptive negative 07/01/16 18:11 Drugs of Abuse Note Disclamer 07/01/16 18:11 Plasma/Serum Alcohol < 0.01 gm% (0-0.07) 07/01/16 14:53
[2016-07-03] MEDS ORDERED: APRESOLINE IV PRN (18:11)
[2016-07-03] MEDS: ZOCOR PO SCH (22:21)
[2016-07-04] MEDS: LOVENOX SUB-Q SCH (11:00)
--- NOTE | 2016-07-04 12:17 | Query-Altered Level of Consc. ---
Ruddy Bolivar____Sofie Date: 07/04/16 Customs Agent/CDS: Perez Campos Phone#: [phone] Exercise your independent professional judgment when responding to this query. Questions asked do not imply a particular answer is desired or expected. We greatly appreciate your clarification on this issue. Clinical Documentation States: 89 year old male was admitted on 07/01/16. The H&P states : (1) Altered mental status Current Visit: Yes Status: Acute Qualifiers: Altered mental status type: somnolence Plan to address problem: W/u for stroke The Progress note (07/03/16) states : Assessment and plan: Acute CVA - Neurology recommendation appreciated - Patient is on aspirin, statin - Permissive hypertension - Speech evaluation appreciated - PT evaluation appreciated - Stroke education - We will finish the workup including TTE - Patient didn't have A. fib on the monitor, may need event monitor as an outpatient, currently doesn't need anticoagulation - Patient is evaluated by acute rehabilitation and recommended SNF Please provide an appropriate diagnosis clarifying the Etiology and Acuity of this clinical scenario: [ ] Metabolic Encephalopathy [ ] Toxic Encephalopathy [x ] Toxic - Metabolic Encephalopathy [ ] Septic Encephalopathy with Sepsis [ ] Septic Encephalopathy without Sepsis [ ] Acute Hepatic Encephalopathy [ ] Subacute Hepatic Encephalopathy [ ] Encephalopathy [ ] Other: [ ] Unable To Determine [ ]Comment/Explanation: Present on Admission: [x ] Yes (Y) [ ] Clinically undeterminable (W) [ ] No (N) Please also document response in your Progress Notes and/or Discharge Summary and indicate if the condition was present on admission. WADED
[2016-07-04] MEDS: D5/0.45NS 1,000 ML IV SCH (15:01)
--- NOTE | 2016-07-04 16:02 | Discharge Summary ---
Providers - Providers Date of Admission: 07/01/16 20:35 Date of discharge: 07/04/16 Attending physician: THANH GORDON MD 07/01/16 20:39 Occupational Therapy Evaluate and Treat [CONS] Routine Comment: Reason For Exam: Neuro deficits Physical Therapy Evaluation and Treat [CONS] Routine Comment: Reason For Exam: Neuro deficits 07/03/16 09:08 Consult to Physician [CONS] Routine Consulting Provider: SUSAN CHAVEZ Reason For Exam: CVA Place consult to:: Acute rehab Notified:: yes Was contact made?: No Comment:: put on dr list 07/03/16 18:02 PICC Line Insertion [Consult to PICC Line RN] [CONS] Routine Reason For Exam: hard stick Type Line:: PICC Primary care physician: HEAD TRANSFER CLERK Hospitalization Reason for admission: CVA Condition: Fair Hospital course: 89-year-old male arrived 07/01 w/ family members who provided history present illness. They report that the patient was found with constant severe decrease in speech approximately 1 hour prior to arrival at 1:30 PM. They stated that they found the patient lying in bed staring at the roof, with decreased alertness. Last well 06/30 @ 9:51 PM. They submit that the patient has normal speech and ability to communicate at baseline. Sx are constant. There are no clear aggravating, relieving or temporal factors. Severity was enough to cause inability to effectively use the right side. L MCA stroke syndrome. 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 LDL 79. CTA Head/Neck post surgical L ICA suspect prior CEA. PT was consulted, neurology consult appreciated. Speech evaluation was done and recommend puree diet and patient was discharged to SNF. Patient was hemodynamically stable at the time of discharge. Disposition: DC/TX SNF W [facility] CERT Time spent for discharge: 31 minutes - Discharge Diagnoses (1) Acute left HAYDEE ischemic stroke Status: Acute (2) Altered mental status Status: Acute Qualifiers: Altered mental status type: somnolence Coma depth: C Coma timing: C Qualified Code(s): R40.0 - Somnolence (3) HTN (hypertension) Status: Acute Qualifiers: Hypertension type: essential hypertension Qualified Code(s): I10 - Essential (primary) hypertension (4) Hemiparesis, aphasia, and dysphagia as late effect of cerebrovascular accident (CVA) Status: Acute Core Measure Documentation - Palliative Care Palliative Care/ Comfort Measures: Not Applicable - Core Measures Any of the following diagnoses?: stroke - Stroke Discharge Requirements Statin for LDL = or >70 mg/dl on DC: Yes Anticoag for atrial fib/atrial flutter: Not Applicable Antithrombotic for ischemic stroke: Yes Exam - Physical Exam Narrative exam: Not in cardiopulmonary distress. Chronically sick looking Vital signs as documented. Head exam is unremarkable. No scleral icterus . Neck is without jugular venous distension, thyromegaly, or carotid bruits. Lungs are clear to auscultation. Cardiac exam reveals regular rate and Rhythm.. Abdominal exam reveals normal bowel sounds, no masses, no organomegaly and no aortic enlargement. Extremities are nonedematous. 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 - Constitutional Vitals: Temp Pulse Resp BP Pulse Ox 97.9 F 77 20 150/65 94 07/04/16 08:40 07/04/16 13:50 07/04/16 10:00 07/04/16 08:40 07/04/16 10:00 Plan Activity: advance as tolerated Weight Bearing Status: Weight Bear as Tolerated Diet: low cholesterol, low salt, advance as tolerated, other (follow dietary recommendations, patient passed swallow evaluation) Special Instructions: physical therapy Follow up with: PRIMARY CARE, [Primary Care Provider] - 7 Days Prescriptions: AtorvaSTATin [Lipitor] 40 mg PO QHS #30 tablet amLODIPine [Norvasc] 10 mg PO DAILY #30 tab Aspirin 81 mg PO DAILY #30 tab.chew oxyCODONE /ACETAMINOPHEN [Percocet 5/325 mg] 1 tab PO Q6H PRN #12 tablet PRN Reason: Pain, Moderate (4-6)
[2016-07-04 19:33] VITALS: BP 151/69
--- NOTE | 2016-07-05 07:25 | Vascular Lab Report ---
CAROTID DUPLEX STUDY: RIGHT PSVEDV CCA PROX: 85 8 CCA DIST: 77 7 ICA PROX: 7510 ICA MID: 72 8 ICA DIST: 42 9 ECA: 87 VERT: 37 9 LEFT PSVEDV CCA PROX: 46 9 CCA DIST: 68 8 ICA PROX: 6512 ICA MID: 8520 ICA DIST: 4312 ECA: 181 VERT: 56 5 REASON FOR EXAM: Carotid artery stenosis/acute mental status change. COMMENTS ON THE RIGHT: Doppler frequency analysis is consistent with 16 to 49 percent diameter reduction of the internal carotid artery. Minimal amount of plaque is seen. The common carotid artery is patent. The external carotid artery is patent. The vertebral artery has antegrade flow. COMMENTS ON THE LEFT: Doppler frequency analysis is consistent with 16 to 49 percent diameter reduction of the internal carotid artery. Minimal amount of plaque is seen. The common carotid artery is patent. The external carotid artery is patent. The vertebral artery has antegrade flow. Increased velocity in the left external carotid artery suggest stenosis. IMPRESSION: Less than 50% diameter reduction in the internal carotid arteries bilaterally. Consider repeat carotid artery duplex in 12 months.
== END 2016-07-04 18:48 | DRG 64 ==
LOC: ED 13:49 → 4A 20:35
PROVIDERS: ADMIT Internal Medicine; ATTEND Internal Medicine
PROC: 3E0234Z Introduction of Serum, Toxoid and Vaccine into Muscle, Percutaneous Approach (ICD-10-PCS; principal; 2016-07-02)
DX: I63.312 Cerebral infarction due to thrombosis of left middle cerebral artery (principal); G92 Toxic encephalopathy; I69.354 Hemiplegia and hemiparesis following cerebral infarction affecting left non-dominant side; E87.5 Hyperkalemia; I10 Essential (primary) hypertension; M19.90 Unspecified osteoarthritis, unspecified site; I48.91 Unspecified atrial fibrillation; F17.210 Nicotine dependence, cigarettes, uncomplicated; R56.9 Unspecified convulsions; R40.0 Somnolence; I69.320 Aphasia following cerebral infarction; I69.391 Dysphagia following cerebral infarction; Z79.01 Long term (current) use of anticoagulants; Z23 Encounter for immunization; Z86.718 Personal history of other venous thrombosis and embolism; Z82.49 Family history of ischemic heart disease and other diseases of the circulatory system
CPT/HCPCS: 36415; 70450; 70496; 70498; 70544; 70551; 71010; 74230; 80053; 80061; 80307; 80320; 81001; 82140; 82962; 83690; 83735; 84439; 84443; 85007; 85025; 85610; 85730; 90686; 90732; 93005; 93010; 93306; 93880; 94760; G0480; G8978-GP; G8979-GP; G8996-GN; G8997-GN; J1650; Q9967